=== PATIENT | female | born 1985 | race Caucasian/White ===

== ENCOUNTER → 2016-07-06 | Outpatient (CLI) | payer BC ==
[~2016-07-06] MED LIST: PRENTAB26 PO
[2016-07-06 11:58] LABS: URINE APPEARANCE CLEAR (CLEAR); URINE BILIRUBIN NEG (NEG); URINE COLOR YELLOW; URINE NITRITE NEG (NEG); URINE SPECIFIC GRAVITY 1.024 (1.000-1.030); UROBILINOGEN NEG (NEG)
[2016-07-06 12:05] LABS: MANUAL MICROSCOPIC REQUIRED? NO; REVIEW REQ? NO
== END | disposition home or self-care (01) ==
LOC: C.LABSPEC 11:24
PROVIDERS: ATTEND Obstetrics & Gynecology
DX: Z34.00 Encounter for supervision of normal first pregnancy, unspecified trimester (principal)

== ENCOUNTER → 2016-07-11 | Outpatient (CLI) | payer BC ==
[2016-07-11 16:39] LABS: BASO % 0.3 %; BASO ABS # 0.02 K/uL (0-0.2); COMPLETE YES; EOS % 1.6 %; HEMATOCRIT 37.1 % (37-47); IG% 0.1 %; LYMPH % 23.4 %; LYMPH ABS # 1.58 K/uL (1.2-3.4); MEAN CELL VOLUME 88.5 fL (80-100); MEAN CORPUSCULAR HEMOGLOBIN 31.3 pg (25-34); MEAN CORPUSCULAR HGB CONC 35.3 g/dl (32-36); MEAN PLATELET VOLUME 9.6 fL (7.4-10.4); MONO % 9.5 %; NEUT % 65.1 %; PLATELET COUNT 233 K/uL (130-400); RED BLOOD COUNT 4.19 M/uL (4.2-5.4); WHITE BLOOD COUNT 6.76 K/uL (4.8-10.8)
[2016-07-13 13:22] LABS: CHLAMYDIA TRACH RNA*** NOT DETECTED (NOT DETECTED); GC (NEIS GONORRHOEAE)RNA** NOT DETECTED (NOT DETECTED)
== END | disposition home or self-care (01) ==
LOC: C.LAB1850 15:14
PROVIDERS: ATTEND Obstetrics & Gynecology
DX: Z34.00 Encounter for supervision of normal first pregnancy, unspecified trimester (principal)

== ENCOUNTER → 2016-08-09 | Outpatient (CLI) | payer BC ==
[2016-08-09 18:38] LABS: GTGD 50 Grams
== END | disposition home or self-care (01) ==
LOC: C.LAB 17:23
PROVIDERS: ATTEND Obstetrics & Gynecology
DX: Z34.02 Encounter for supervision of normal first pregnancy, second trimester (principal)

== ENCOUNTER → 2016-08-15 | Outpatient (CLI) | payer BC | END | disposition home or self-care (01) | LOC: C.LAB1850 08:06 | PROVIDERS: ATTEND Obstetrics & Gynecology | DX: O28.1 Abnormal biochemical finding on antenatal screening of mother (principal); Z3A.00 Weeks of gestation of pregnancy not specified ==

== ENCOUNTER → 2016-11-09 | Outpatient (CLI) | payer BC ==
[2016-11-09 09:28] LABS: HEMATOCRIT 35.9 % (37-47)
[2016-11-09 12:15] LABS: URINE APPEARANCE CLEAR (CLEAR); URINE BILIRUBIN NEG (NEG); URINE COLOR YELLOW; URINE EPITHELIAL CELL AUTO >30 /lpf (0-5); URINE NITRITE NEG (NEG); URINE PH 6.5 (4.5-7.5); URINE SPECIFIC GRAVITY 1.026 (1.000-1.030); UROBILINOGEN NEG (NEG)
[2016-11-09 12:18] LABS: MANUAL MICROSCOPIC REQUIRED? NO; REVIEW REQ? NO
== END | disposition home or self-care (01) ==
LOC: C.LAB1850 08:41
PROVIDERS: ATTEND Obstetrics & Gynecology
DX: Z34.02 Encounter for supervision of normal first pregnancy, second trimester (principal)

== ENCOUNTER → 2017-01-07 | Outpatient (CLI) | payer BC ==
[~2017-01-07] VITALS: Ht 154.9 cm; Wt 70.8 kg
[2017-01-07 20:31] VITALS: Ht 154.9 cm; Wt 70.8 kg
== END ==
LOC: UNDOADMIN 19:35 → C.OPB 19:35 → C.LD 19:35 → EDSTATUS 01-08 21:51
PROVIDERS: ATTEND Obstetrics & Gynecology
DX: O16.9 Unspecified maternal hypertension, unspecified trimester (principal); Z3A.00 Weeks of gestation of pregnancy not specified

== ENCOUNTER 2017-01-08 00:18 | Inpatient (IN) | payer BC ==
[~2017-01-08] VITALS: Ht 154.9 cm; Wt 70.0 kg
[2017-01-08] MEDS ORDERED: LACTATED RINGER'S 1000ML 500 ML IV PRN ×2 (08:09→13:50)
[2017-01-08] MEDS ORDERED: LACTATED RINGER'S 1000ML 1,000 ML IV PRN (08:09)
[2017-01-08] MEDS ORDERED: LACTATED RINGER'S 1000ML 1,000 ML IV SCH (08:09)
[2017-01-08] MEDS ORDERED: OXYTOCIN 30 UNITS/500ML NSS IV PRN ×2 (08:15→21:15)
[2017-01-08 08:44] LABS: HEMATOCRIT 35.4 % (37-47); MEAN CELL VOLUME 85.9 fL (80-100); MEAN CORPUSCULAR HEMOGLOBIN 28.9 pg (25-34); MEAN CORPUSCULAR HGB CONC 33.6 g/dl (32-36); MEAN PLATELET VOLUME 9.6 fL (7.4-10.4); PLATELET COUNT 222 K/uL (130-400); RED BLOOD COUNT 4.12 M/uL (4.2-5.4); WHITE BLOOD COUNT 13.04 K/uL (4.8-10.8)
[2017-01-08] MEDS ORDERED: PENICILLIN G POTASSIUM IV 6 MU in DEXTROSE 5% 250ML 250 ML IV ONE (09:00)
[2017-01-08 12:17] VITALS: Ht 154.9 cm; Wt 70.0 kg
[2017-01-08] MEDS ORDERED: BUPIVACAINE 0.25% 30 ML VIAL ONE ×2 (12:50→13:52)
[2017-01-08] MEDS ORDERED: FENTANYL 2MCG/ML ROPIV 1.25MG/ML 100ML BAG EPI ONE (12:50)
[2017-01-08] MEDS ORDERED: EpHEDrine SULFATE INJ 50 MG/ML AMP ONE (12:50)
[2017-01-08] MEDS ORDERED: FENTANYL CITRATE INJ 50 MCG/1 ML 2 ML VIAL ONE (12:51)
[2017-01-08] MEDS: PENICILLIN G POTASSIUM IV 3 MU in DEXTROSE 5% 100ML 100 ML IV PRN ×2 (13:13→17:49)
[2017-01-08] MEDS ORDERED: NALOXONE HCL INJ 1 MG in SODIUM CHLORIDE 0.9% 1000ML 1,000 ML IV PRN (13:50)
[2017-01-08] MEDS ORDERED: NALBUPHINE HCL INJ 10 MG/ML AMP IV PRN (14:00)
[2017-01-08] MEDS ORDERED: NALOXONE HCL INJ 0.4 MG/1 ML VIAL/CARP IV PRN (14:00)
[2017-01-08] MEDS ORDERED: FENTANYL 2MCG/ML ROPIV 1.25MG/ML 100ML BAG EPI PRN (14:00)
[2017-01-08] MEDS ORDERED: ONDANSETRON INJ 2 MG/ML 2 ML VIAL IV PRN (14:00)
[2017-01-08] MEDS ORDERED: DiphenhydrAMINE HCL 50 MG/ML VIAL IV PRN (14:00)
[2017-01-08] MEDS ORDERED: EpHEDrine SULFATE INJ 50 MG/ML AMP IV PRN (14:00)
[2017-01-08] MEDS ORDERED: SUPERCREAM 0.870 % 15GM JAR EXT PRN (21:15)
[2017-01-08] MEDS ORDERED: HYDROCORTISONE ACETATE 25 MG SUPP PR PRN (21:15)
[2017-01-08] MEDS ORDERED: DIPHTHERIA/TETANUS/PERTUSSIS 0.5 ML SYR/VIAL IM. ONE (21:15)
[2017-01-08] MEDS ORDERED: OXYCODONE/ACETAMINOPHEN 5-325 TAB PO PRN (21:15)
[2017-01-08] MEDS ORDERED: LANOLIN OINT EXT PRN ×2 (21:15)
[2017-01-08] MEDS ORDERED: ACETAMINOPHEN 325 MG TAB PO PRN (21:15)
[2017-01-08] MEDS ORDERED: BENZOCAINE 20% AER SPR 82.5 GM CAN EXT PRN (21:15)
[2017-01-08] MEDS: IBUPROFEN 600 MG TAB PO PRN (21:55)
[2017-01-08 23:15] VITALS: BP 126/74; PULSE 77; TEMP 36.7; O2SAT 96
[2017-01-09 03:30] VITALS: BP 106/70; PULSE 83; TEMP 36.9; O2SAT 97
[2017-01-09 07:13] LABS: HEMATOCRIT 29.7 % (37-47)
--- NOTE | 2017-01-09 07:40 | Progress Note ---
Subjective Jan 09, 2017. Subjective conversation w/ patient, physical exam, chart review, lab review Ambulation: limited ambulation (to bathroom thus far) Voiding: no voiding problems Passing Gas: Yes Diet Tolerance: Regular Diet Lochia: Small Feeding Type: Breast Feeding Pain: Notes minimal cramping Comment: Found pt resting comfortably, denies any acute concerns. Review of Systems Constitutional: No fever, No chills Respiratory: No cough, No shortness of breath Cardiac: No chest pain Abdomen: No nausea, No vomiting, No diarrhea Female : No dysuria Objective Vital Signs Date Time Temp Pulse Resp B/P (MAP) Pulse Ox O2 Delivery O2 Flow Rate FiO2 01/09/17 03:30 36.9 83 16 106/70 (82) 97 Room Air 01/08/17 23:15 36.7 77 16 126/74 (91) 96 Room Air 01/08/17 23:15 Room Air Physical Exam General Appearance: WELL-APPEARING, WD/WN, NO APPARENT DISTRESS Respiratory/Chest: lungs clear, normal breath sounds, no respiratory distress Cardiovascular: regular rate, rhythm, no murmur Abdomen: normal bowel sounds, non tender, soft Fundus: Firm, Non-Tender, Relation to Umbilicus (at umbilicus) Extremities: normal range of motion, no calf tenderness, + pedal edema (trace ( B)) Laboratory Results Last 24 Hours Test 01/08/17 08:20 01/09/17 06:20 White Blood Count 13.04 K/uL Red Blood Count 4.12 M/uL Hemoglobin 11.9 g/dL 10.0 g/dL Hematocrit 35.4 % 29.7 % Mean Corpuscular Volume 85.9 fL Mean Corpuscular Hemoglobin 28.9 pg Mean Corpuscular Hemoglobin Concent 33.6 g/dl RDW Standard Deviation 42.2 fL RDW Coefficient of Variation 13.4 % Platelet Count 222 K/uL Mean Platelet Volume 9.6 fL Assessment and Plan Post- Day#: 1 Continue Routine Care: 31F s/p vaginal delivery, now PPD #1. - Blood type A negative. 's blood type A negative. - GBS positive, s/p abx x2. Rubella immune. - Vital signs reviewed and stable. - Pain controlled with motrin. - No leg swelling or tenderness on calf palpation. Encourage ambulation. - Encourage breast feeding. - Hemoglobin pre-delivery 11.9, post-delivery 10.0. Bleeding has improved. Continue to monitor clinically. - Continue routine post-vaginal delivery care. - Pt agreed with above plan, all current questions answered. Wan Robert MD, PGY1 Log Snaker Physician Supervision Note: I interviewed and examined the patient. Discussed with Dr. Robert and agree with findings and plan as documented in the note. Any exceptions or clarifications are listed here: Doing well. Routine care. Documented By: Melvina Carter Resident Tracking Resident Involvement: Resident Care Provided Care Provided: OB Delivery (OB rounds)
[2017-01-09] MEDS: PRENATAL VITAMIN TAB PO SCH (07:47)
[2017-01-09] MEDS: DOCUSATE SODIUM 100 MG CAP PO SCH ×2 (07:48→19:57)
[2017-01-09 07:50] VITALS: BP 113/71; PULSE 87; TEMP 36.6; O2SAT 98
--- NOTE | 2017-01-09 07:59 | DELIVERY SUMMARY ---
DATE OF OPERATION: 01/09/2017 PREOPERATIVE DIAGNOSES: 1. Intrauterine at 37 3/7 weeks. 2. Gestational hypertension. POSTOPERATIVE DIAGNOSES: Same. PROCEDURE: 1. Breen bulb for cervical ripening. 2. Pitocin augmentation. 3. Epidural anesthesia. 4. Amniotomy for clear fluid. 5. Normal spontaneous vaginal delivery. 6. First degree perineal laceration with repair. SURGEON: Dr. Carter. ANESTHESIA: Epidural. ESTIMATED BLOOD LOSS: 350 cc. PROCEDURE: The patient was diagnosed with gestational hypertension within the last week with blood pressures of upper 140s/90s. She was brought in for a Breen bulb for cervical ripening the night before her induction. The morning of her induction the bulb was pulled from her vagina. She was 350 and -1. She was started on Pitocin augmentation. When she got into a regular contraction pattern she had an epidural. After the epidural she had an amniotomy for clear fluid when she was 4-5 cm. The patient then progressed under Pitocin augmentation to complete complete and +2 station. She pushed for less than a half an hour to deliver a viable female infant in initially KELSI presentation but the restituted to STEPHAN presentation. There was no nuchal cord. The nose and mouth were bulb suctioned on the perineum. The rest of the baby was then delivered without difficulty. There was immediate cry. The nose and mouth were bulb suctioned. The infant was placed on maternal abdomen for drying and attention. The cord was clamped and cut at 1 minute of life. Cord blood was obtained. The placenta was delivered spontaneously intact with a 3-vessel cord. Cervix, sulci, rectum and perineum were examined and found to be intact. A first degree vaginal laceration was repaired and then the sloughing of the skin at the posterior introitus from 4-6 o'clock was reapproximated with several interrupted sutures of 4-0 Vicryl. Hemostasis was obtained with dilute Pitocin and fundal massage. Apgars pending. Mother and baby doing well at the end of the delivery. I attest to the content of the Intraoperative Record and any orders documented therein. Any exception s are noted below.
--- NOTE | 2017-01-09 09:40 | Anesthesia Procedure Note ---
Anesthesia Epidural Removal Nt Date & Time Jan 09, 2017 at 09:40 Vital Signs Pain Intensity: 0.0 Vital Signs Past 12 Hours Date Time Temp Pulse Resp B/P (MAP) Pulse Ox O2 Delivery O2 Flow Rate FiO2 01/09/17 03:30 36.9 83 16 106/70 (82) 97 Room Air 01/08/17 23:15 36.7 77 16 126/74 (91) 96 Room Air 01/08/17 23:15 Room Air Notes Mental Status: alert / awake / arousable, participated in evaluation Nausea / Vomiting: adequately controlled Pain: adequately controlled Airway Patency, RR, SpO2: stable & adequate BP & HR: stable & adequate Hydration State: stable & adequate Neuraxial Anesthesia: was administered Anesthetic Complications: no major complications apparent, pt satisfied with anesthetic care Epidural: removed without complications, with tip intact
[2017-01-09 12:40] VITALS: BP 118/82; PULSE 80; TEMP 37.1; O2SAT 98
[2017-01-09 16:50] VITALS: BP 130/81; PULSE 76; TEMP 37.1; O2SAT 99
[2017-01-09] MEDS: IBUPROFEN 600 MG TAB PO PRN (17:02)
[2017-01-09 20:00] VITALS: BP 120/78; PULSE 71; TEMP 36.3
[2017-01-10] VITALS: BP 115/71; PULSE 76; TEMP 36.5
--- NOTE | 2017-01-10 06:41 | Progress Note ---
Subjective Jan 10, 2017. Subjective conversation w/ patient, physical exam, chart review, lab review Ambulation: ambulating normally Voiding: no voiding problems Passing Gas: Yes Diet Tolerance: Regular Diet Lochia: Small Feeding Type: Breast Feeding Pain: notes minimal cramping Comment: Found pt resting comfortably, denies any acute concerns. Review of Systems Constitutional: No fever, No chills Respiratory: No cough Cardiac: No chest pain Abdomen: No nausea, No vomiting, No diarrhea Female : No dysuria Objective Vital Signs Date Time Temp Pulse Resp B/P (MAP) Pulse Ox O2 Delivery O2 Flow Rate FiO2 01/10/17 00:00 Room Air 01/10/17 00:00 36.5 76 18 115/71 (86) 01/09/17 20:00 36.3 71 18 120/78 (92) 01/09/17 16:50 Room Air 01/09/17 16:50 37.1 76 20 130/81 (97) 99 Room Air 01/09/17 12:40 37.1 80 20 118/82 (94) 98 Room Air 01/09/17 07:50 36.6 87 18 113/71 (85) 98 Room Air 01/09/17 07:50 Room Air Physical Exam General Appearance: WELL-APPEARING, WD/WN, NO APPARENT DISTRESS Abdomen: non tender, soft Fundus: Firm, Non-Tender, Relation to Umbilicus (at umbilicus) Extremities: normal range of motion, + pedal edema (trace bilaterally) Assessment and Plan Post- Day#: 2 Continue Routine Care: Resident Physician Supervision Note: I was present with Dr. Robert during the history and exam. I discussed the case with the resident and agree with the findings and plan as documented in the note. Any exceptions or clarifications are listed here: [None] Documented By: Meryl Rosario 31F s/p vaginal delivery, now PPD #2. - Blood type A negative. Infants blood type A negative. GBS positive, s/p antibiotics. Rubella immune. - Vital signs reviewed and stable. - Pain controlled with motrin. - Trace bilateral leg swelling and no tenderness on calf palpation. Encourage ambulation. - Encourage breast feeding. - Hemoglobin pre-delivery 11.9, post-delivery 10.0. Bleeding has improved. Continue to monitor clinically. - Continue routine post-vaginal delivery care. Discussed discharge precautions with pt. - Pt agreed with above plan, all current questions answered. Wan Robert MD, PGY1 Windows Security Analyst Tracking Resident Involvement: Resident Care Provided Care Provided: OB Delivery (OB rounds)
--- NOTE | 2017-01-10 07:13 | Discharge Instructions ---
Discharge Instructions Date of Service Jan 10, 2017. Admission Reason for Admission: Induction Discharge Discharge Diagnosis / Problem: recovery after normal delivery Discharge Goals Goal(s): Routine recovery after delivery Medications Continue Dispensed Medications: supercream, dermaplast, tucks, inhaler, lansinoh Activity Recommendations Activity Limitations: per Instructions/Follow-up section . Instructions / Follow-Up Instructions / Follow-Up ACTIVITY RECOMMENDATIONS: * Gradual return to full activity over the next 2-3 weeks. * No lifting - nothing heavier than baby over the next 2-3 weeks. * Do not engage in vigorous exercise, sexual activity or sports until cleared by your physician. * Do not drive or operate any motorized equipment until cleared by your physician. * You may shower/bathe daily. MEDICATIONS: For discomfort or pain, you may use Acetaminophen (Tylenol), Ibuprofen (Advil), or Naproxen (Aleve) following the package directions. For constipation you may use Colace following the package directions. BREAST CARE: If you are not breast feeding: * Wear a supportive bra 24 hours a day for one to two weeks. * Avoid stimulating your breasts and nipples as much as possible during the first few weeks after delivery. * When taking a shower, have the warm water hit your back, not breasts. * When your breasts feel full, apply ice packs. Usually three to four times a day helps ease the discomfort. * Take a mild pain medication (Tylenol / Motrin) when you are uncomfortable. If breast feeding: * Use breast milk to lubricate nipples. Lansinoh cream may be used for sore nipples. You do not need to remove cream prior to breast feeding. If using a different brand of cream, check the label for directions regarding removal of cream prior to nursing. * Wear a supportive bra. * If having problems with breasts or breast feeding, call a hospice consultant or your health care provider. EPISIOTOMY CARE: After delivery, if you have an episiotomy (stitches), the following steps will ease discomfort and aid healing. * For the first 24 hours after delivery, place ice packs next to your episiotomy to help reduce swelling. * After the first 24 hour-period, sitz baths, either portable or in the tub, are suggested. A shower with a shower arm sprayed over the episiotomy may be comforting. * Silvia care should be done after each voiding and bowel movement. Squirt warm water from a plastic bottle over the perineum (region of the body between the anus and urinary opening) and pat dry. * Use Dermoplast to ease discomfort. Shake container. [place] directly over the episiotomy. Place a Tucks on a clean sanitary pad next to your episiotomy. SPECIAL CARE INSTRUCTIONS: When you are discharged from the hospital, it is important for you to follow the instructions listed below: * During the first week at home, you should be able to care for yourself and your baby. In addition, the usual light household activities are encouraged. * Limit your activities to the way you feel. Do not try to clean the house or move furniture. Be sensible. * If you actively engage in sports and have done so up until the time of your delivery, you may resume these activities as soon as you feel able. This may take up to one month or even longer. Use good judgment. * Continue to take your vitamins for at least six weeks after the of your baby. * Your diet need not be limited unless you were on a special diet before your delivery. Breast-feeding mothers need around 2500 calories per day and at least 64-80 ounces of fluid per day (8 to 10 glasses). * You should eat foods from the four major food groups. Crash diets or fad diets are to be avoided. Eating lean meats, fresh fruits and vegetables, low-fat dairy products, high fiber foods and a regular exercise program, will help you get back to your pre- weight without putting your health at risk. * Constipation is sometimes a problem after delivery. Take a mild laxative as needed. If breast feeding, Milk of Magnesia is acceptable to use. You may use a suppository or Fleets enema if no episiotomy. * A daily shower or tub bath is suggested. Be sure to thoroughly and gently dry the perineum. * A bloody vaginal discharge will usually continue until around four weeks post . A small amount of bleeding may continue for as long as six weeks. Vaginal discharge changes from the bright red bleeding after delivery to pink then brownish and finally yellowish-pink before becoming white and disappearing. * Bleeding may increase with activity. Your first period may come in 4-8 weeks. If you are breast feeding, your period may be delayed even longer. * Harrold (sex) can begin whenever both you and your partner feel comfortable and do not have any form of genital infection. It is recommended that you wait at least six weeks for internal and external healing to occur. If you have questions, please talk to your health care practitioner. A condom should be used to prevent infection and . * Foreplay, gentle intercourse and lubrication is very important the first several times to prevent pain. A water-based lubricant such as K-Y jelly or Astroglide may be used. * If you have RH negative blood and your baby is RH positive, you will receive RHOGAM by injection prior to discharge. The nurse will give you a card to keep with you that has the date and place that you received RHOGAM after delivery. * During your care, you had a Rubella screen done to check for the presence of rubella antibodies in your blood. If your test was negative, you will receive a Rubella vaccine prior to discharge. This vaccine may cause a fever, soreness at the injection site and flu-like symptoms. If these symptoms persist, notify your health care practitioner. is not advised for one month after a Rubella vaccine. * Verbalizes understanding of car seat law as reviewed with patient nursing. * Car Seat hand-out given and reviewed with patient by nursing. * Shaken baby information reviewed with patient by nursing. Call you doctor if: * Heavy bleeding (saturating several pads an hour) or passing clots the size of your fist. * A fever >101 degrees F (38.3 degrees C) on two occasions four hours apart and /or chills. * Unusual pain in the pelvic or vaginal areas. * "Baby Blues" lasting longer than two weeks. If you have any questions or concerns, call your health care practitioner at . FOLLOW UP VISIT: * Please call the office at to schedule a 6 week examination. It is important you keep this appointment. It is important for you to make arrangements for either yearly or twice yearly check-ups thereafter. Current Hospital Diet Patient's current hospital diet: Regular OB Diet Discharge Diet Recommended Diet: Regular OB Diet Pending Studies Studies pending at discharge: no Medical Emergencies . Who to Call and When: Medical Emergencies: If at any time you feel your situation is an emergency, please call 911 immediately. . Non-Emergent Contact Non-Emergency issues call your: Front Desk Monitor . . "Provider Documentation" section prepared by Meryl Rosario. . VTE Core Measure Inpt VTE Proph given/why not?: Treatment not indicated
[2017-01-10] MEDS: IBUPROFEN 600 MG TAB PO PRN ×2 (07:31→19:08)
[2017-01-10] MEDS: DOCUSATE SODIUM 100 MG CAP PO SCH (07:31)
[2017-01-10] MEDS: PRENATAL VITAMIN TAB PO SCH (07:31)
[2017-01-10 07:51] VITALS: BP 136/83; PULSE 77; TEMP 36.7; O2SAT 97
[2017-01-10 08:03] VITALS: O2SAT 97
[2017-01-10 15:20] VITALS: BP 124/82; PULSE 80; TEMP 36.5; O2SAT 97; O2SAT 98
[2017-01-10 17:56] VITALS: BP_DIAS 82; PULSE 80; TEMP 36.5
== END 2017-01-10 19:15 | disposition home or self-care (01) | DRG 774 ==
LOC: C.LD 07:44 → C.OBG 23:08
PROVIDERS: ADMIT Obstetrics & Gynecology; ATTEND Obstetrics & Gynecology
PROC: 0HQ9XZZ Repair Perineum Skin, External Approach (ICD-10-PCS; principal; 2017-01-09)
PROC: 10E0XZZ Delivery of Products of Conception, External Approach (ICD-10-PCS; principal; 2017-01-09)
PROC: 3E033VJ Introduction of Other Hormone into Peripheral Vein, Percutaneous Approach (ICD-10-PCS; principal; 2017-01-09)
DX: O16.3 Unspecified maternal hypertension, third trimester (principal); O70.0 First degree perineal laceration during delivery; Z37.0 Single live birth; Z3A.37 37 weeks gestation of pregnancy

== ENCOUNTER → 2017-03-01 | Outpatient (CLI) | payer BC ==
--- NOTE | 2017-03-01 15:50 | MAMMOGRAPHY REPORT ---
UNILATERAL RIGHT DIGITAL DIAGNOSTIC MAMMOGRAM TOMOSYNTHESIS AND TARGETED RIGHT ULTRASOUND: 03/01/2017 CLINICAL HISTORY: The patient is 7 weeks . She stopped breast-feeding approximately 1.5 we eks ago, and shortly thereafter developed an area of pain, skin erythema, and palpable lump in the ri ght breast. She was placed on antibiotics on Saturday although the symptoms have not resolved. TECHNIQUE: Breast tomosynthesis in addition to standard 2D mammography was performed. Right CC and MLO 2-D intermittent doses images were obtained. COMPARISON: No prior exams were available for comparison. BREAST COMPOSITION: The tissue of the right breast is extremely dense, which lowers the sensitivity of mammography. FINDINGS: There is a possible obscured mass seen within the right medial breast mammographically, ce ntered around the 2 to 3:00 breast. The remainder of the right breast demonstrates no suspicious mas ses, calcifications, or areas of architectural distortion. Targeted ultrasound was performed of the area of the palpable lump, pain, and associated skin erythem a, in the right upper inner quadrant at approximately 1 to 2:00. In the right breast, centered aroun d 1:00, 3 cm from the nipple, there is a large mixed echogenicity mass which is too large to accurate ly measure on ultrasound but measures at least 4.9 x 3.2 x 4.6 cm. The mass is predominantly hypoech oic but contains some anechoic fluid components. Given the clinical history, the mass likely represe nts phlegmon/abscess. IMPRESSION: ACR BI-RADS CATEGORY 2: BENIGN, TARGETED ULTRASOUND ACR BI-RADS CATEGORY 2: BENIGN Large mixed echogenicity mass in the right upper inner quadrant, which measures at least 4.9 cm on ul trasound. Given the clinical history, the mass is benign and likely represents phlegmon/early absces s. Recommend attempted ultrasound guided aspiration. There is no mammographic or targeted sonographic evidence of malignancy. The patient has been verball y notified of the results. The patient returned later the same day for aspiration. Results were dis cussed with Alma Delia Mora over the telephone on 03/01/2017. Approximately 10% of breast cancers are not detected with mammography. A negative mammographic report should not delay biopsy if a clinically suggestive mass is present. Shoshana Goncalves M.D. ah/:03/01/2017 14:47:44 Soldering Technician: Milli MATT(R)(M), [facility] letter sent: Normal /2 BI-RADS Code: ACR BI-RADS Category 2: Benign Ultrasound BI-RADS: ACR BI-RADS Category 2: Benign
--- NOTE | 2017-03-01 15:50 | MAMMOGRAPHY REPORT ---
ASPIRATION RIGHT BREAST: 03/01/2017 CLINICAL HISTORY: Large mixed echogenicity mass in the right upper outer quadrant, felt to represent phlegmon/abscess. PATIENT CONSENT: The procedure and risks of ultrasound-guided aspiration were discussed in full with the patient. Both oral and written consents were obtained. PROCEDURE DESCRIPTION: With ultrasound guidance, aseptic technique, and 1% lidocaine as a local anest hetic, an attempt was made to aspirate the mixed echogenicity mass in the right upper inner quadrant using an 18-gauge needle attached to a syringe. Approximately 17 mL of purulent fluid was aspirated and sent to cytology for analysis. Residual hypoechoic tissue is seen in this region after aspiratio n, which is ill-defined and therefore difficult to measure but measures at least 4.7 x 2.2 x 4.8 cm; this could represent phlegmon/inflammatory changes or residual abscess which could not be drained. Di rect pressure was applied to the site immediately post procedure and hemostasis was achieved. The pa tient tolerated the procedure without complication. COMPARISON: Comparison is made to exams dated: 03/01/2017 ultrasound and 03/01/2017 mammogram - [facility]. IMPRESSION: ASPIRATION Partial aspiration of the mixed echogenicity fluid collection in the right upper inner quadrant. Jeanne roximately 17 mL of purulent fluid was drained and sent to cytology for analysis. Residual ill-defin ed hypoechoic tissue is seen in this region, which could represent phlegmon or residual abscess which could not be drained. The patient will receive pathology results from her referring provider. Chidi mmend continued clinical follow-up. Shoshana Goncalves M.D. ah/:03/01/2017 14:52:46 Manager Women: Emilia MATT(R)(M), [facility]
== END | disposition home or self-care (01) ==
LOC: C.MAMM 09:57
PROVIDERS: ATTEND Physician Assistant
DX: N63.0 Unspecified lump in unspecified breast (principal); N64.4 Mastodynia

== ENCOUNTER → 2017-03-21 | Outpatient (CLI) | payer BC ==
--- NOTE | 2017-03-21 14:35 | MAMMOGRAPHY REPORT ---
ULTRASOUND OF RIGHT BREAST: 03/21/2017 CLINICAL HISTORY: The patient is status post aspiration of a right upper inner quadrant breast absces s on 03/01/2017, in which approximately 17 mL of purulent fluid was drained. The patient finished her course of antibiotics and her pain and skin erythema has resolved. She still feels a residual lump although it feels smaller in size. COMPARISON: Comparison is made to exams dated: 03/01/2017 aspiration, 03/01/2017 ultrasound, and 2016 mammogram - [facility]. TECHNIQUE: Real-time targeted ultrasound of the right breast was performed. FINDINGS: Real-time, high-resolution targeted ultrasound was performed of the area of the residual lump in the right breast at approximately 1:00, 3 cm from the nipple. At the site of the palpable lump there is a small oval circumscribed anechoic fluid collection which measures 1.1 x 0.7 x 1.1 cm. Surrounding ill-defined hyperechoic tissue is seen, with total extent of the finding measuring 1.6 x 1.6 x 1.5 cm . Other hypoechoic tissue is seen surrounding this which appears similar to other tissue throughout the right breast and likely represents normal fibroglandular tissue/resolving lactational changes. F indings are benign and likely represent small residual abscess and surrounding inflammatory changes. IMPRESSION: ACR BI-RADS CATEGORY 2: BENIGN Small 1.1 cm residual fluid collection and surrounding hyperechoic tissue at the site of the residual lump in the right 1:00 breast, with total extent of the finding measuring approximately 1.6 x 1.6 cm . Findings likely represent a small residual abscess and surrounding inflammatory changes. Given th at the patient has improved clinically and has no further pain or skin erythema and the lump has clin ically decreased, I will leave it up to the referring provider if they would like ultrasound-guided a spiration to be performed of the small collection. Also recommend clinical follow-up to resolution o f the palpable lump. There is no sonographic evidence of malignancy. The patient was verbally notified of the results. Shoshana Goncalves M.D. /:03/21/2017 11:58:57 Golf Technician: Shoshana Goncalves MD, [facility] letter sent: Normal 1/2 BI-RADS Code: ACR BI-RADS Category 2: Benign
== END | disposition home or self-care (01) ==
LOC: C.MAMM 09:57
PROVIDERS: ATTEND Obstetrics & Gynecology
DX: N63.10 Unspecified lump in the right breast, unspecified quadrant (principal)